=== PATIENT | male | born 1935 | race Caucasian/White ===

== ENCOUNTER 2016-11-21 10:16 | Emergency (ER) | payer OTHER ==
[~2016-11-21] VITALS: Ht 180.3 cm; Wt 94.0 kg
[~2016-11-21 10:16] MED LIST: Blood pressure; Cholesterol Med; [UNRECOGNIZED DRUG - OTHER]
[2016-11-21 12:42] VITALS: BP 155/83
== END 2016-11-21 12:42 | disposition home or self-care (01) ==
LOC: EME 10:16
DX: S81.811A Laceration without foreign body, right lower leg, initial encounter (principal); W26.8XXA Contact with other sharp object(s), not elsewhere classified, initial encounter; Z23 Encounter for immunization; E78.5 Hyperlipidemia, unspecified; I10 Essential (primary) hypertension; E11.9 Type 2 diabetes mellitus without complications
CPT/HCPCS: 99281; 99284